=== PATIENT | male | born 1990 | race Caucasian/White ===

== ENCOUNTER 2023-04-27 08:25 | Emergency (ER) | payer BC, SELFPAY ==
[2023-04-27 08:32] VITALS: BP 153/103; PULSE 104; RESP 18; TEMP 36.9; O2SAT 94; BMI 33.5
[2023-04-27] MEDS: FLUORESCEIN SODIUM 1 MG STRIP (09:37)
[2023-04-27] MEDS: EYE RELIEF EYE WASH 118 ML/BOTTLE BOTTLE (09:37)
--- NOTE | 2023-04-27 10:13 | ED.GENADUL1 ---
HPI - General Adult General Chief complaint: Eye Problems Stated complaint: FOREIGN OBJECT IN EYE Time Seen by Provider: 04/27/23 08:54 Source: patient Mode of arrival: walk-in Limitations: no limitations History of Present Illness HPI narrative: Patient is a 32-year-old male who is presenting to the Emergency Room with chief complaint of foreign body in his right eye. Patient believes that this may have occurred very noticed that at 8 PM last evening. 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 Patient worked all night long, he came into the Emergency Room for evaluation. Patient thinks that he sees a small speck in his eye to continue foreign body, patient also is hoping it might be pinkeye as well. Patient has had irritation to his right eye all night. Patient has no drainage from the right eye. Patient is uncertain what happened or how a piece of metal may have gotten into his right eye. Patient does multiple things when working maintenance, he cannot recall a specific event where he might account a foreign body in his right eye. No other acute complaints. Patient does not wear glasses or contacts. . All systems are negative except as noted/marked. All systems reviewed and otherwise negative. . Nurses note and vital signs reviewed and patient is not hypoxic. General: The patient appears well and in no apparent distress. Patient is resting comfortably on cart. Patient is not toxic, lethargic, or listless Skin: Warm, dry, no pallor noted. There is no rash noted. No petechiae, purpura. Head: Normocephalic, atraumatic Eye: Normal conjunctiva, no drainage, EOMI. PERRL. See procedure note. Foreign body to the right eye, 2 o'clock position, patient has a small piece of metal noted at the 2 PM position of the right eye. See procedure note. Ears, Nose, Mouth, and Throat: oral mucosa is moist. Nares patent. Mouth without vesicles. Cardiovascular: Regular Rate and Rhythm, no murmur, gallop, rub Respiratory: Patient is in no distress, no accessory muscle use, lungs are clear to auscultation, no wheezing, rales or rhonchi Musculoskeletal: Patient has full range of motion of all of the extremities, no motor, sensory, or focal neurological deficits Neurological: A&O x3, normal speech Psychiatric: Cooperative Related Data Previous Rx's Medication Instructions Recorded erythromycin 5 mg/gram (0.5 %) eye 1.25 cm ophthalmic (eye) Q4H 7 04/27/23 ointment days #3.5 grams hydrocodone 5 mg-acetaminophen 325 1 tab PO Q8H PRN pain #7 tabs 04/27/23 mg tablet Allergies Allergy/AdvReac Type Severity Reaction Status Date / Time No Known Drug Allergies Allergy Verified 04/27/23 08:31 PFSH PFSH Social History Smoking status: Never smoker Exam Constitutional Vital Signs, click to edit/add: Last Vital Signs Temp 98.4 F 04/27/23 08:32 Pulse 104 H 04/27/23 08:32 Resp 18 04/27/23 08:32 BP 153/103 H 04/27/23 08:32 Pulse Ox 94 L 04/27/23 08:32 O2 Del Method Room Air 04/27/23 08:32 Course Vital Signs Vital signs: Vital Signs Temperature 98.4 F 04/27/23 08:32 Pulse Rate 104 H 04/27/23 08:32 Respiratory Rate 18 04/27/23 08:32 Blood Pressure 153/103 H 04/27/23 08:32 Pulse Oximetry 94 L 04/27/23 08:32 Oxygen Delivery Method Room Air 04/27/23 08:32 Temperature 98.4 F 04/27/23 08:32 Pulse Rate 104 H 04/27/23 08:32 Respiratory Rate 18 04/27/23 08:32 Blood Pressure 153/103 H 04/27/23 08:32 Pulse Oximetry 94 L 04/27/23 08:32 Oxygen Delivery Method Room Air 04/27/23 08:32 Medical Decision Making MDM Narrative Medical decision making narrative: See procedure note. Patient a small piece of metal in his right eye. Patient had tetracaine placed, patellar per was used. Approximately 75 percent of the metal piece had been removed. There is a small piece the remaining. 3 different times was done with Some improvement myself. Patient will be placed on erythromycin ointment, [place], and patient will follow-up with an eye doctor today. Patient was given 2 different doctor facilities in [place] that he can follow up with today. Patient was also given Dr. Romo's and Dr. Ibarra's office number for Saturday as well. Patient understands this, And the importance of seeing an eye physician today for definitive care and reevaluation and removal of the foreign body. See nursing notes for visual acuity. Patient's vision is within normal limits. Patient is not seen a doctor for many, many years. Patient does need to follow-up with eye physician as well Discharge Plan Discharge Chief Complaint: Eye Problems Clinical Impression: Foreign body in eye, Corneal abrasion Patient Disposition: Home, Self-Care Condition: Fair Prescriptions / Home Meds: New erythromycin 5 mg/gram (0.5 %) ointment 1.25 cm ophthalmic (eye) Q4H 7 Days Qty: 3.5 0RF hydrocodone-acetaminophen 5-325 mg tablet 1 tab PO Q8H PRN (Reason: pain) Qty: 7 0RF Instructions: Corneal Abrasion (ED), Eye Foreign Body (ED) Additional Instructions: He needs to follow-up with an eye physician today. [facility] that he can follow-up with. [facility] eye doctor is open today near [facility]. [facility] [phone] is also open today It is absent. Of the follow-up with eye physician today. Doctor's offices across the street from [facility] are also Dr. Pitt or Yuriy that he can follow-up with his well for definitive care and help remove the remaining part of the foreign body in the right eye. Stand Alone Forms: Portal Instructions Referrals: RAHEL ROMO [Physician] - 1 week Physician,Non-Staff, [Primary Care Provider] - 1 week Procedures ED Procedure Instructions Procedures Procedures: Patient had 4 tetracaine drops placed to the right eye. Patient has a small piece of metal noted to o'clock position of the right eye. With Kristin RN and Krupa RN mattress and boxsprings supervisor at bedside helping me hold patient's right upper and lower eyelid open, I was able to use the ophthalmic bur to remove approximately 75 percent of the metal piece. I was able to remove the rust ring as well. 3 attempts were done by myself with the ophthalmic bur trying to remove the metal piece. This is been over 12 hours of epithelialization that has occurred. Patient is aware there is still a small piece of the foreign body still remaining. Patient tolerated procedure well without difficulty. Patient had 4 drops of tetracaine placed at discharge as well. 2 drops of tetracaine were placed in the middle of the procedure and attempting to remove the ophthalmic bur. Patient drove to the Emergency Room, Abx eye ointment was not placed in his eye, prescriptions were given for [place] and erythromycin ointment.
[2023-04-27 10:22] VITALS: BP 151/85; PULSE 74; RESP 18; O2SAT 96
== END 2023-04-27 10:24 | disposition home or self-care (01) ==
PROVIDERS: Emergency Provider Emergency Medicine
DX: T15.01XA Foreign body in cornea, right eye, initial encounter (principal)
CPT/HCPCS: 99282

== ENCOUNTER 2023-12-10 09:36 | Outpatient (OUT) | payer OTHER, SELFPAY ==
--- NOTE | 2023-12-10 09:43 | XR_ITS ---
The [address] [address] Patient Name: JUSTIN WAKEFIELD MRN: [id number] date: 1990 Sex: M Assigned Patient Location: [facility] Current Patient Location: [facility] Accession/Order Number: [id number] Exam Date: 12/10/2023 09:45 Report Date: 12/10/2023 10:22 At the request of: MICHAEL POE Procedure: XR foot LT min 3V PROCEDURE: XR foot LT min 3V, XR calcaneus LT min 2V COMPARISON: None. HISTORY: Left Foot Contusion, Calcaneal Contusion FINDINGS: BONES:No acute fracture or dislocation. Remote fixation of the tibiofibular syndesmosis. No significant degenerative changes. SOFT TISSUES:Negative. No visible soft tissue swelling. EFFUSION:None visible. OTHER: Negative. XR/XR foot LT min 3V IMPRESSION: No acute radiographic abnormality Electronically authenticated by: ROX CAMP Date: 12/10/2023 10:22
--- NOTE | 2023-12-10 09:43 | XR_ITS ---
The [address] [address] Patient Name: JUSTIN WAKEFIELD MRN: [id number] date: 1990 Sex: M Assigned Patient Location: RAD Current Patient Location: [facility] Accession/Order Number: [id number] Exam Date: 12/10/2023 09:45 Report Date: 12/10/2023 10:22 At the request of: MICHAEL POE Procedure: XR calcaneus LT min 2V PROCEDURE: XR foot LT min 3V, XR calcaneus LT min 2V COMPARISON: None. HISTORY: Left Foot Contusion, Calcaneal Contusion FINDINGS: BONES:No acute fracture or dislocation. Remote fixation of the tibiofibular syndesmosis. No significant degenerative changes. SOFT TISSUES:Negative. No visible soft tissue swelling. EFFUSION:None visible. OTHER: Negative. XR/XR calcaneus LT min 2V IMPRESSION: No acute radiographic abnormality Electronically authenticated by: ROX CAMP Date: 12/10/2023 10:22
== END 2023-12-10 09:37 | disposition home or self-care (01) ==
LOC: RAD 09:38
PROVIDERS: Visit Provider Nurse Practitioner Family
DX: M79.672 Pain in left foot (principal)
CPT/HCPCS: 73630; 73650